=== PATIENT | male | born 1990 | race African-American/Black ===

== ENCOUNTER 2019-07-07 13:15 | Emergency (ER) | payer SELFPAY ==
[~2019-07-07] VITALS: Ht 175.3 cm; Wt 70.0 kg
[2019-07-07 14:08] VITALS: BP 134/74
--- NOTE | 2019-07-07 14:53 | PHYS DOC ---
Past Medical History Past Medical History: No Pertinent History (ROQUE THOMASON APRN) Past Surgical History: No Surgical History (ROQUE THOMASON APRN) Smoking Status: Current Every Day Smoker Alcohol Use: Occasionally (ROQUE THOMASON APRN) Adult General Chief Complaint Chief Complaint: UPPER EXTREMITY INJURY HPI HPI Patient is a 28 year old male with no significant medical history who presents to the ED today complaining of swelling around the right antecubital joint that began 3 days ago after donating plasma. Patient is also complaining of pain to t he area that got exacerbated after playing with his dog. Denies any fever. (ROQUE THOMASON APRN) Review of Systems Review of Systems Constitutional: Denies fever or chills [] Musculoskeletal: Denies back pain or joint pain [] Integument: Reports pain and swelling on the right antecubital joint Neurologic: Denies headache, focal weakness or sensory changes [] All other systems were reviewed and found to be within normal limits, except as documented in this note. (ROQUE THOMASON APRN) Current Medications Current Medications Current Medications Medications (Trade) Dose Ordered Sig/Berta Start Time Stop Time Status Last Admin Dose Admin Diphtheria/ Tetanus/Acell Pertussis (Boostrix) 0.5 ml ONCE ONCE 07/07/19 15:00 07/07/19 15:01 DC 07/07/19 15:17 0.5 ML (HUMBERTO RAPHAEL DO) Allergies Allergies Allergies Coded Allergies Type Severity Reaction Last Updated Verified No Known Drug Allergies 07/07/19 No (HUMBERTO RAPHAEL DO) Physical Exam Physical Exam Constitutional: Well developed, well nourished, no acute distress, non-toxic appearance. [] Skin: Warm, dry, right forearm proximal end with a puncture wound consistent with needlestick a couple days ago. This slight erythema to the area but no signs of infection. There is no palpable masses. Neurovascular exam is intact. Back: No tenderness, no CVA tenderness. [] Extremities: No tenderness, no cyanosis, no clubbing, ROM intact, no edema. [] Neurologic: Alert and oriented X 3, normal motor function, normal sensory function, no focal deficits noted. [] Psychologic: Affect normal, judgement normal, mood normal. [] (ROQUE THOMASON APRN) Current Patient Data Vital Signs Vital Signs Date Time Temp Pulse Resp B/P (MAP) Pulse Ox O2 Delivery O2 Flow Rate FiO2 07/07/19 14:08 98.0 96 16 134/74 (94) 97 Room Air 98.0 (HUMBERTO RAPHAEL DO) EKG EKG [] (ROQUE THOMASON APRN) Radiology/Procedures Radiology/Procedures []PROCEDURE: VENOUS UPPER EXTREMITY RIGHT Examination: VENOUS UPPER EXTREMITY RIGHT History: Right upper kidney swelling after plasma donation. Comparison/Correlation: None FINDINGS: Grayscale and Doppler analysis of the right upper extremity deep venous system was performed with graded compression and augmentation. The internal jugular, subclavian, axillary, brachial, basilic, cephalic, radial and ulnar veins were assessed. There is no evidence of deep venous thrombosis. IMPRESSION: 1. No evidence of right upper extremity deep venous thrombosis. Unremarkable exam. Electronically signed by: Cal Krause MD (07/07/2019 3:28 PM) [facility] DICTATED and SIGNED BY: CAL KRAUSE MD DATE: 07/07/19 1528 (ROQUE THOMASON APRN) Course & Med Decision Making Course & Med Decision Making Pertinent Labs and Imaging studies reviewed. (See chart for details) This is a 28-year-old male patient presenting to the ED today with pain around the right antecubital joint as well as swelling that began 3 days ago after donating plasma. Venous Doppler of the right upper extremity is negative for any acute findings. Tetanus was updated. Warm compresses recommended to the area. Follow-up with the PCP in 1-2 weeks. Recommended he takes a break off from plasma donations (ROQUE THOMASON APRN) Dragon Disclaimer Dragon Disclaimer This electronic medical record was generated, in whole or in part, using a voice recognition dictation system. (ROQUE THOMASON APRN) Departure Departure Impression: Primary Impression: Thrombophlebitis arm Disposition: 01 HOME, SELF-CARE Condition: STABLE Referrals: NO PCP (PCP) follow up with your doctor in 1-2 weeks Patient Instructions: Phlebitis, [id number] Additional Instructions: You have venous Doppler of the right upper extremity is negative for any acute findings. We highly recommend you take a break off from plasma donations for the next 2 weeks. Please apply warm compresses to the affected area on the right forearm. You can take Tylenol or Motrin for pain. Follow-up with your doctor in 1-2 weeks. Attending Signature Attending Signature I have reviewed the PA/CONFIGURATION MANAGEMENT ADMINISTRATOR's note and plan of care. I was available for consultation as needed during the patient's visit in the emergency department. I agree with the clinical impression, plan, and disposition. (HUMBERTO RAPHAEL DO) ROQUE THOMASON APRN Jul 07, 2019 14:53 HUMBERTO RAPHAEL DO Jul 07, 2019 21:14
[2019-07-07] MEDS ORDERED: DIPHTH,PERTUSS(ACELL),TET TOX 0.5 ML DISP.SYRIN. VAX IM ONE (15:00)
--- NOTE | 2019-07-07 15:31 | RAD ---
Examination: VENOUS UPPER EXTREMITY RIGHT History: Right upper kidney swelling after plasma donation. Comparison/Correlation: None FINDINGS: Grayscale and Doppler analysis of the right upper extremity deep venous system was performed with graded compression and augmentation. The internal jugular, subclavian, axillary, brachial, basilic, cephalic, radial and ulnar veins were assessed. There is no evidence of deep venous thrombosis. IMPRESSION: 1. No evidence of right upper extremity deep venous thrombosis. Unremarkable exam. Electronically signed by: Cal Vargas MD (07/07/2019 3:28 PM) [facility]
== END 2019-07-07 15:45 | disposition home or self-care (01) ==
LOC: ER 13:15
DX: I80.8 Phlebitis and thrombophlebitis of other sites (principal); M79.601 Pain in right arm; R60.0 Localized edema; L53.9 Erythematous condition, unspecified; F17.200 Nicotine dependence, unspecified, uncomplicated
CPT/HCPCS: 90471; 90715; 93971; 99284